=== PATIENT | male | born 1955 | race Caucasian/White ===

== ENCOUNTER 2021-12-28 12:30 | Outpatient (CLI) | payer MEDICARE, OTHER | END 2021-12-28 12:31 | disposition home or self-care (01) | LOC: CSHCT 12:30 | PROVIDERS: ATTEND Otolaryngology Plastic Surgery within the Head & Neck | DX: H92.11 Otorrhea, right ear (principal); H65.31 Chronic mucoid otitis media, right ear; H70.91 Unspecified mastoiditis, right ear; H60.91 Unspecified otitis externa, right ear; H61.91 Disorder of right external ear, unspecified | CPT/HCPCS: 70480; 70486 ==

== ENCOUNTER 2022-02-13 11:18 | Day surgery (SDC) | payer MEDICARE, OTHER ==
[2022-02-10 13:28] VITALS: BMI 18.7
[~2022-02-13 11:18] MED LIST: CEFAZOLIN 1 GM VIAL ONE; Dexamethasone 4 mg/ml Vial ONE; EPINEPHrine 1 MG/ML AMP ONE; Fentanyl 250 MCG/5 ML VIAL ONE; Ketamine 50 MG/ML (10ML VIAL) ONE; Lidocaine 1% PF 5 ML VIAL ONE; Lidocaine 1% w/Epinephrine 1:100K 20 ML VIAL ONE; Midazolam HCl 2 mg/2 ml Vial ONE; Mupirocin 2% Ointment 22 GM Tube ONE; Ondansetron PF 4 MG/2 ML Vial ONE; PROPOFOL 20 ML ONE; Phenylephrine 40 MG/NS 250 ML 250 ML ONE; Rocuronium Bromide 10 MG/ML (10ML VIAL) ONE; oFLOXacin 0.3% Opth 5 ML BOT ONE
[2022-02-13] MEDS ORDERED: PHENYLEPHRINE-NS 100 MCG/ML 10 ML SYRINGE ONE (11:56)
[2022-02-13 12:18] LABS: Anion Gap 14 mmol/L (10-20); BUN (Urea Nitrogen) 9 mg/dL (8.4-25.7); Calc. Creatinine Clearance 26 mL/min (70-130); Calcium 9.6 mg/dL (7.8-10.44); Carbon Dioxide 29 mmol/L (23-31); Chloride 103 mmol/L (98-107); Estimated GFR 21; Glucose 93 mg/dL (80-115); Potassium 4.1 mmol/L (3.5-5.1); Sodium 142 mmol/L (136-145)
[2022-02-13] MEDS ORDERED: Ciprofloxacin HCL/Dexameth Otic Drops 7.5 ml Bottle EA EAR SCH (13:30)
[2022-02-13] MEDS ORDERED: Glycopyrrolate 0.2 MG/ML 5 ML SYRINGE ONE (14:07)
[2022-02-13] MEDS ORDERED: Fentanyl 100 MCG/2 ML VIAL ONE (14:19)
[2022-02-13] MEDS ORDERED: Naloxone HCl 0.4 mg/ml Vial ONE (14:39)
== END 2022-02-13 16:11 | disposition home or self-care (01) ==
LOC: CSHSDC 11:18
PROVIDERS: ATTEND Otolaryngology Plastic Surgery within the Head & Neck
PROC: 099580Z Drainage of Right Middle Ear with Drainage Device, Via Natural or Artificial Opening Endoscopic (ICD-10-PCS; principal; 2022-02-13)
PROC: 0NB Head and Facial Bones, Excision (ICD-10-PCS; 2022-02-13)
DX: H70.11 Chronic mastoiditis, right ear (principal); H65.21 Chronic serous otitis media, right ear; I12.0 Hypertensive chronic kidney disease with stage 5 chronic kidney disease or end stage renal disease; E11.22 Type 2 diabetes mellitus with diabetic chronic kidney disease; N18.6 End stage renal disease; D63.1 Anemia in chronic kidney disease; K21.9 Gastro-esophageal reflux disease without esophagitis; Z79.82 Long term (current) use of aspirin; Z79.899 Other long term (current) drug therapy; Z99.2 Dependence on renal dialysis
CPT/HCPCS: 69436; 69502; 80048; 87070; 87075; 87077; 87102; 87186; 87205; 87206; C1713; 36415; 88305; J0171; J0690; J1100; J2250; J2310; J2405; J2704; J3010

== ENCOUNTER 2022-02-20 19:07 | Inpatient (IN) | payer MEDICARE, MEDICAID ==
[2022-02-20] MEDS ORDERED: Acetaminophen 325 MG TAB PO PRN (20:24)
[2022-02-20] MEDS ORDERED: Calcium Carbonate 500 MG ChewTAB PO PRN (20:24)
[2022-02-20] MEDS ORDERED: Senokot S 8.6-50 MG TAB PO PRN (20:24)
[2022-02-20] MEDS ORDERED: HumaLOG 300 UNITS/3 ML VIAL SC PRN (20:24)
[2022-02-20] MEDS ORDERED: Ondansetron PF 4 MG/2 ML Vial IVP PRN (20:24)
[2022-02-20] MEDS ORDERED: Dextrose 50% Abboject 50 ML SYRINGE SLOW IVP PRN (20:24)
[2022-02-20] MEDS ORDERED: Dextrose 5% in Water 1,000 ML IV PRN (20:24)
[2022-02-20] MEDS ORDERED: Polyethylene Glycol 3350 17 GM Packet PO PRN (20:28)
[2022-02-20] MEDS ORDERED: Pharmacy to Dose ABX/VANCOMYCIN IVPB PRN (20:51)
[2022-02-20] MEDS ORDERED: Dexamethasone 4 mg/ml Vial SLOW IVP SCH (21:15)
[2022-02-20 21:54] VITALS: BMI 24.7
[2022-02-20] MEDS: Gabapentin 300 MG CAP PO SCH (22:38)
[2022-02-20] MEDS: Simvastatin 10 MG TAB PO SCH (22:38)
[2022-02-20] MEDS: Cholecalciferol 1,000 UNITS (25 MCG) TAB PO SCH (22:38)
[2022-02-20] MEDS: Melatonin 3 MG TAB PO SCH (22:38)
[2022-02-20] MEDS: levETIRAcetam 500 MG TAB PO SCH (22:39)
[2022-02-20] MEDS: Heparin 5,000 UNITS/ML VIAL SC SCH (22:39)
[2022-02-20] MEDS: hydrALAZINE 25 MG TAB PO SCH (22:42)
[2022-02-20] MEDS: Morphine 2 MG/ML VIAL SLOW IVP PRN (22:47)
[2022-02-20] MEDS: Piperacillin/Tazobactam 3.375 GM in Sodium Chloride 0.9% 100 ML IVPB SCH (23:22)
[2022-02-20] MEDS ORDERED: Vancomycin Diaylsis Sliding Scale (Wt 71-99) FS SCH (23:30)
[2022-02-20] MEDS ORDERED: Piperacillin/Tazobactam 3.375 GM in Sodium Chloride 0.9% 100 ML IVPB SCH (23:59)
[2022-02-21 04:29] LABS: SARS-CoV-2 NAA Rapid Test Not Detected (NotDetected)
[2022-02-21 04:38] LABS: Anion Gap 20 mmol/L (10-20); BUN (Urea Nitrogen) 40 mg/dL (8.4-25.7); Calc. Creatinine Clearance 9 mL/min (70-130); Calcium 9.3 mg/dL (7.8-10.44); Carbon Dioxide 20 mmol/L (23-31); Chloride 100 mmol/L (98-107); Estimated GFR 6; Glucose 102 mg/dL (80-115); Potassium 5.4 mmol/L (3.5-5.1); Sodium 135 mmol/L (136-145)
[2022-02-21 04:50] LABS: #Monocytes 0.2 10x3/uL (0.0-1.1); #Neutrophils 6.2 10x3/uL (1.5-8.4); %Basophils 0.3 % (0.0-2.0); %Eosinophils 0.3 % (0.0-6.0); %Lymphocytes 4.5 % (18.0-47.0); %Monocytes 2.8 % (0.0-10.0); %Neutrophils 91.2 % (40.0-75.0); Hemoglobin 8.1 g/dL (13.5-17.5); Mean Corpuscular Hemoglobin 33.3 pg (27.0-33.0); Mean Corpuscular Volume 104.1 fl (81.2-95.1); Mean Platelet Volume 11.1 fl (7.4-10.4); Platelet Count 141 10x3/uL (150-450); RBC Distribution Width 13.3 % (11.5-14.5); Red Blood Cell (RBC) Count 2.43 10x6/uL (4.32-5.72); White Blood Cell (WBC) Count 6.7 10x3/uL (3.5-10.5)
[2022-02-21] MEDS: Morphine 2 MG/ML VIAL SLOW IVP PRN (05:25)
[2022-02-21] MEDS: HYDROcodone/Acetaminophen 5/325 mg Tablet PO PRN ×2 (08:26→18:13)
[2022-02-21] MEDS: hydrALAZINE 25 MG TAB PO SCH ×3 (08:26→21:09)
[2022-02-21] MEDS: Heparin 5,000 UNITS/ML VIAL SC SCH ×3 (08:26→21:10)
[2022-02-21] MEDS: Chlorhexidine Gluconate 15 ML UDCUP SSP SCH (08:27)
[2022-02-21] MEDS: Aspirin 81 mg Enteric Coated Tablet PO SCH (08:27)
[2022-02-21] MEDS: Venlafaxine HCl XR 75 MG CAP PO SCH (08:27)
[2022-02-21] MEDS: Bisacodyl 5 MG TAB PO SCH (08:27)
[2022-02-21] MEDS: levETIRAcetam 500 MG TAB PO SCH ×2 (08:27→21:10)
[2022-02-21] MEDS: Mupirocin 2% Ointment 22 GM Tube TOP SCH (08:27)
[2022-02-21] MEDS: Mirtazapine 15 MG Soltab PO SCH (08:27)
[2022-02-21] MEDS ORDERED: Vancomycin 1 GM in Premix Bag 1 BAG IVPB SCH (09:00)
[2022-02-21] MEDS ORDERED: Nystatin Powder 15 GM BOT TOP PRN (11:57)
[2022-02-21] MEDS: Piperacillin/Tazobactam 3.375 GM in Sodium Chloride 0.9% 100 ML IVPB SCH (12:33)
[2022-02-21] MEDS ORDERED: Heparin 10,000 UNITS/ 10 ML VIAL SLOW IVP PRN (12:57)
[2022-02-21] MEDS ORDERED: Sodium Chloride 0.9% 250 ML 200 ML IVPB PRN (13:00)
[2022-02-21] MEDS: oFLOXacin 0.3% Opth 5 ML BOT R EAR SCH ×2 (15:49→18:10)
[2022-02-21] MEDS ORDERED: Vancomycin HCl 750 MG in Sodium Chloride 0.9% 250 ML 250 ML IVPB SCH (17:00)
[2022-02-21] MEDS ORDERED: Vancomycin HCl 750 MG VIAL ONE (17:47)
[2022-02-21] MEDS: Simvastatin 10 MG TAB PO SCH (21:08)
[2022-02-21] MEDS: Cholecalciferol 1,000 UNITS (25 MCG) TAB PO SCH (21:08)
[2022-02-21] MEDS: Gabapentin 300 MG CAP PO SCH (21:08)
[2022-02-21] MEDS: Melatonin 3 MG TAB PO SCH (21:10)
[2022-02-21] MEDS ORDERED: Piperacillin/Tazobactam 3.375 GM VIAL ONE (23:57)
[2022-02-22] MEDS: HYDROcodone/Acetaminophen 5/325 mg Tablet PO PRN (00:16)
[2022-02-22] MEDS: Piperacillin/Tazobactam 3.375 GM in Sodium Chloride 0.9% 100 ML IVPB SCH ×2 (00:17→12:39)
[2022-02-22] MEDS: oFLOXacin 0.3% Opth 5 ML BOT R EAR SCH ×3 (02:25→18:44)
[2022-02-22] MEDS ORDERED: Carvedilol 25 MG TAB PO SCH (08:00)
[2022-02-22] MEDS ORDERED: Sevelamer Carbonate 800 MG TAB PO SCH (08:00)
[2022-02-22] MEDS: Heparin 5,000 UNITS/ML VIAL SC SCH ×3 (09:04→21:39)
[2022-02-22] MEDS: Morphine 2 MG/ML VIAL SLOW IVP PRN ×3 (09:04→19:18)
[2022-02-22] MEDS: Mupirocin 2% Ointment 22 GM Tube TOP SCH (09:05)
[2022-02-22] MEDS: hydrALAZINE 25 MG TAB PO SCH ×3 (09:05→21:32)
[2022-02-22] MEDS: Bisacodyl 5 MG TAB PO SCH (09:05)
[2022-02-22] MEDS: levETIRAcetam 500 MG TAB PO SCH ×2 (09:05→21:33)
[2022-02-22] MEDS: Chlorhexidine Gluconate 15 ML UDCUP SSP SCH (09:05)
[2022-02-22] MEDS: Venlafaxine HCl XR 75 MG CAP PO SCH (09:05)
[2022-02-22] MEDS: Aspirin 81 mg Enteric Coated Tablet PO SCH (09:05)
[2022-02-22] MEDS: Mirtazapine 15 MG Soltab PO SCH (09:06)
[2022-02-22] MEDS: Cholecalciferol 1,000 UNITS (25 MCG) TAB PO SCH (21:32)
[2022-02-22] MEDS: Simvastatin 10 MG TAB PO SCH (21:33)
[2022-02-22] MEDS: Melatonin 3 MG TAB PO SCH (21:33)
[2022-02-22] MEDS: Gabapentin 300 MG CAP PO SCH (21:33)
[2022-02-22] MEDS ORDERED: Mirtazapine 15 MG Soltab PO SCH (21:45)
[2022-02-23] MEDS: Morphine 2 MG/ML VIAL SLOW IVP PRN ×3 (00:46→13:11)
[2022-02-23] MEDS: Piperacillin/Tazobactam 3.375 GM in Sodium Chloride 0.9% 100 ML IVPB SCH ×2 (00:47→13:11)
[2022-02-23] MEDS: Mirtazapine 15 MG Soltab PO SCH ×2 (00:47→00:50)
[2022-02-23] MEDS: oFLOXacin 0.3% Opth 5 ML BOT R EAR SCH (02:00)
[2022-02-23] MEDS: Heparin 5,000 UNITS/ML VIAL SC SCH ×2 (07:54→14:53)
[2022-02-23 07:59] LABS: Vancomycin, Random 18.1 ug/mL (See Comment)
[2022-02-23] MEDS ORDERED: oFLOXacin 0.3% Opth 5 ML BOT R EAR SCH (08:00)
[2022-02-23] MEDS: hydrALAZINE 25 MG TAB PO SCH ×2 (08:41→14:53)
[2022-02-23 08:48] VITALS: BP 155/68; TEMP 97.3
[2022-02-23] MEDS: Bisacodyl 5 MG TAB PO SCH (13:07)
[2022-02-23] MEDS: Mupirocin 2% Ointment 22 GM Tube TOP SCH (13:08)
[2022-02-23] MEDS: Venlafaxine HCl XR 75 MG CAP PO SCH (13:08)
[2022-02-23] MEDS: levETIRAcetam 500 MG TAB PO SCH (13:08)
[2022-02-23] MEDS: Aspirin 81 mg Enteric Coated Tablet PO SCH (13:08)
[2022-02-23] MEDS: Chlorhexidine Gluconate 15 ML UDCUP SSP SCH (13:09)
[2022-02-23] MEDS ORDERED: Vancomycin HCl 500 MG in Sodium Chloride 0.9% 100 ML IVPB SCH (17:00)
== END 2022-02-23 15:49 | disposition home or self-care (01) | DRG 154 ==
LOC: CSHTELE 19:07
PROVIDERS: ADMIT Otolaryngology Otolaryngic Allergy; ATTEND Internal Medicine
PROC: 5A1D70Z Performance of Urinary Filtration, Intermittent, Less than 6 Hours Per Day (ICD-10-PCS; principal; 2022-02-21)
PROC: 5A1D70Z Performance of Urinary Filtration, Intermittent, Less than 6 Hours Per Day (ICD-10-PCS; 2022-02-23)
DX: H60.21 Malignant otitis externa, right ear (principal); N18.6 End stage renal disease; L03.211 Cellulitis of face; I12.0 Hypertensive chronic kidney disease with stage 5 chronic kidney disease or end stage renal disease; H70.001 Acute mastoiditis without complications, right ear; E87.1 Hypo-osmolality and hyponatremia; E78.5 Hyperlipidemia, unspecified; I25.10 Atherosclerotic heart disease of native coronary artery without angina pectoris; E11.51 Type 2 diabetes mellitus with diabetic peripheral angiopathy without gangrene; E11.22 Type 2 diabetes mellitus with diabetic chronic kidney disease; F41.9 Anxiety disorder, unspecified; F32.A Depression, unspecified; D63.1 Anemia in chronic kidney disease; E11.40 Type 2 diabetes mellitus with diabetic neuropathy, unspecified; E87.5 Hyperkalemia; B95.62 Methicillin resistant Staphylococcus aureus infection as the cause of diseases classified elsewhere; K59.00 Constipation, unspecified; Z20.822 Contact with and (suspected) exposure to COVID-19; Z99.2 Dependence on renal dialysis; Z98.890 Other specified postprocedural states; Z79.82 Long term (current) use of aspirin; Z79.899 Other long term (current) drug therapy; Z95.1 Presence of aortocoronary bypass graft; Z89.022 Acquired absence of left finger(s); Z89.021 Acquired absence of right finger(s)
CPT/HCPCS: 36415; 36416; 80048; 80202; 85025; 90935; G0257; J1100; J1644; J2270; J2543; J3370; J3490; J7050; U0002